=== PATIENT | female | born 1965 | race Caucasian/White ===

== ENCOUNTER 2016-08-21 20:00 | Emergency (ER) | payer OTHER ==
[~2016-08-21] VITALS: Ht 154.9 cm; Wt 88.0 kg
[~2016-08-21 20:00] MED LIST: ACET500C5 PO; ALBU8.5H3 INH; AZIT250T94 PO; GABA300C16 PO; HYDR-1049 PO; INSU300I SQ; LEVEM SC; METR500T PO
[2016-08-21 20:02] VITALS: Ht 154.9 cm; Wt 88.0 kg
[2016-08-21] MEDS ORDERED: SOD CHLORIDE 0.9% 1,000 ML IV STA (21:04)
[2016-08-21] MEDS ORDERED: morphine 4 MG/ML VIAL IV STA (21:04)
[2016-08-21] MEDS ORDERED: ONDANSETRON 4 MG INJ IV STA (21:04)
[2016-08-21 21:50] LABS: ADD SCAN DIFF NO
[2016-08-21 21:52] LABS: BASOPHIL # 0.1 10^3/ul (0.0-0.1); BASOPHILS % 0.3 % (0.0-2.0); EOSINOPHILS # 0.3 10^3/ul (0.0-0.5); EOSINOPHILS % 2.4 % (0.0-7.0); HEMATOCRIT 35.5 % (37.0-47.0); HEMOGLOBIN 10.9 g/dl (12.0-16.0); LYMPHOCYTES # 4.7 10^3/ul (0.8-2.9); LYMPHOCYTES % 32.4 % (15.0-51.0); MEAN CORPUSCULAR HEMOGLOBIN 24.3 pg (29.0-33.0); MEAN CORPUSCULAR HGB CONC 30.7 g/dl (32.0-37.0); MEAN CORPUSCULAR VOLUME 79.1 fl (82.0-101.0); MEAN PLATELET VOLUME 10.1 fl (7.4-10.4); MONOCYTE # 0.7 10^3/ul (0.3-0.9); MONOCYTES % 4.9 % (0.0-11.0); NEUTROPHIL # 8.6 10^3/ul (1.6-7.5); NEUTROPHILS % 59.7 % (39.0-77.0); PLATELET COUNT 346 10^3/UL (140-415); RED BLOOD COUNT 4.49 10^6/ul (4.20-5.40); RED CELL DISTRIBUTION WIDTH 16.4 % (11.5-14.5); WHITE BLOOD COUNT 14.4 10^3/ul (4.8-10.8)
[2016-08-21 22:07] LABS: ALBUMIN 3.6 g/dl (3.3-4.9)
[2016-08-21 22:08] LABS: POTASSIUM 4.4 mmol/L (3.5-5.1)
[2016-08-21 22:10] LABS: ALBUMIN/GLOBULIN RATIO 0.94; BILIRUBIN,INDIRECT 0.1 mg/dl (0-1.1); BILIRUBIN,TOTAL 0.1 mg/dl (0.2-1.3); CREATININE 0.84 mg/dl (0.44-1.00); TOTAL PROTEIN 7.4 g/dl (6.1-8.1)
[2016-08-21 22:21] LABS: ADD UMIC NO; URINE BILIRUBIN (Dip) NEGATIVE (NEGATIVE); URINE BLOOD (Dip) NEGATIVE (NEGATIVE); URINE COLOR YELLOW (YELLOW); URINE GLUCOSE (Dip) NEGATIVE (NEGATIVE); URINE KETONES (Dip) NEGATIVE (NEGATIVE); URINE LEUKOCYTE ESTERASE (Dip) NEGATIVE (NEGATIVE); URINE NITRITE (Dip) NEGATIVE (NEGATIVE); URINE TOTAL PROTEIN (Dip) NEGATIVE (NEGATIVE); URINE UROBILINOGEN (Dip) 0.2 E.U./dL (0.1-1.0)
[2016-08-21] MEDS ORDERED: DICY10CA60 PO (23:17)
--- NOTE | 2016-08-21 23:41 | ERD ---
ER Documentation Chief Complaint Date/Time DATE: 08/21/16 TIME: 23:38 Chief Complaint lower abd pain radiating to back x2 weeks HPI 51-year-old female with a past medical history of diabetes, endometriosis, hypertension presents the ED complaining of bilateral lower abdominal pain that started intermittently 2 weeks ago. Reports that it radiates to her back. Describes it as achy and rates it a 8 out of 10. States that she got a colonoscopy in March 2016 and she had colon polyps which was removed at that time. Denies any constipation, diarrhea, chest pain, shortness of breath, wheezing, fever, chills. Reports that she has had a previous , appendectomy, right breast lumpectomy. Denies any vaginal bleeding, vaginal discharge, dysuria, urgency, frequency, flank pain. ROS All systems reviewed and are negative except as per history of present illness. Medications Home Meds Active Scripts Dicyclomine Hcl* (Bentyl*) 10 Mg Capsule, 10 MG PO QID, #20 CAP Prov:VALERIE COOK PA-C 08/21/16 Acetaminophen* (Tylophen*) 500 Mg Capsule, 2 CAP PO Q8H Y for PAIN AND OR ELEVATED TEMP, #20 CAP Prov:FENG HINOJOSA 04/05/16 Azithromycin* (Zithromax*) 250 Mg Tablet, 250 MG PO .ThaddeusPACK DIRECTED, #6 TAB TAKE 500 MG (2 TABS) THE FIRST DAY THEN 250 MG (1 TAB) DAYS 2-5 Prov:FENG HINOJOSA 04/05/16 Metronidazole* (Flagyl*) 500 Mg Tablet, 500 MG PO TID for 7 Days, TAB Prov:MARLA PARISH DO 02/21/16 Hydrocodone/Ibuprofen (Vicoprofen 200-7.5 MG) 1 Each Tablet, 2 TAB PO Q6H Y for PAIN, #20 TAB Prov:MARLA PARISH DO 02/21/16 Reported Medications Gabapentin* (Gabapentin*) 300 Mg Capsule, 600 MG PO QPM, #180 CAP 02/21/16 Gabapentin* (Gabapentin*) 300 Mg Capsule, 300 MG PO QAM, #60 CAP 02/21/16 Albuterol Sulfate* (Proair HFA*) 8.5 Gm Hfa.aer.ad, 2 PUFF INH Q4H Y for WHEEZING AND SOB, #1 INHALER 02/21/16 Insulin Detemir (Levemir) 100 Unit/1 Ml Vial, 16 UNIT SC TID, VIAL 02/21/16 Insulin Glargine,Hum.rec.anlog (Modesto Muniz) 300 Unit/1 Ml Insuln.pen, 72 UNIT SQ QPM 02/21/16 Allergies Allergies: Coded Allergies: ciprofloxacin (Verified Allergy, Severe, rash, 02/21/16) PMhx/Soc History of Surgery: Yes (endometriosis, cesarian section, APPY) Anesthesia Reaction: No Hx Neurological Disorder: No Hx Respiratory Disorders: Yes (asthma) Hx Cardiac Disorders: Yes (htn, HIGH CHOL) Hx Psychiatric Problems: Yes (depression, anxiety) Hx Miscellaneous Medical Probl: Yes (osteoarthritis, rheumatoid arthritis, osteoporosis, dm, POLYS) Hx Alcohol Use: No Hx Substance Use: No Hx Tobacco Use: No Smoking Status: Never smoker Physical Exam Vitals Vital Signs Date Time Temp Pulse Resp B/P Pulse Ox O2 Delivery O2 Flow Rate FiO2 08/21/16 20:02 98.5 88 20 119/69 98 Physical Exam Const: Vym-kvf-wisovodwi, well-nourished. In no acute distress. Head: Atraumatic, normocephalic Eyes: Normal Conjunctiva without injection. No purulent discharge. ENT: Normal external ear, nose. Moist oropharynx without tonsillar exudates. Non -erythematous pharynx. Uvula midline. No drooling. No trismus. Neck: No cervical midline tenderness. Full range of motion. No meningismus. No cervical lymphadenopathy. No JVD. Resp: Clear to auscultation bilaterally. No wheezing, rhonchi, rales, or crackles. No accessory muscle use. No retractions. Cardio: Regular rate and rhythm. No murmurs, rubs or gallops. Abd: Soft, right and left lower quadrant tenderness to palpation, non distended. Normal bowel sounds. No palpable masses. No rebound tenderness. No guarding. Negative McBurney's point. Negative psoas sign. Negative obturator sign. Skin: No petechiae or rashes Back: No midline tenderness. No CVA tenderness. Ext: No cyanosis, or edema. Neur: Awake and alert. Normal gait. Normal coordination. Psych: Normal Mood and Affect Result Diagram: 08/21/16213108/21/162131 Results 24 hrs Laboratory Tests Test 08/21/16 21:30 08/21/16 21:32 Urine Color YELLOW Urine Clarity CLEAR Urine pH 6.0 Urine Specific [place] 1.015 Urine Ketones NEGATIVE Urine Nitrite NEGATIVE Urine Bilirubin NEGATIVE Urine Urobilinogen 0.2 E.U./dL Urine Leukocyte Esterase NEGATIVE Urine Hemoglobin NEGATIVE Urine Glucose NEGATIVE% Urine Total Protein NEGATIVE White Blood Count 14.410^3/ul Red Blood Count 4.4910^6/ul Hemoglobin 10.9g/dl Hematocrit 35.5% Mean Corpuscular Volume 79.1fl Mean Corpuscular Hemoglobin 24.3pg Mean Corpuscular Hemoglobin Concent 30.7g/dl Red Cell Distribution Width 16.4% Platelet Count 17159^3/UL Mean Platelet Volume 10.1fl Neutrophils % 59.7% Lymphocytes % 32.4% Monocytes % 4.9% Eosinophils % 2.4% Basophils % 0.3% Nucleated Red Blood Cells % 0.0/100WBC Neutrophils # 8.610^3/ul Lymphocytes # 4.710^3/ul Monocytes # 0.710^3/ul Eosinophils # 0.310^3/ul Basophils # 0.110^3/ul Nucleated Red Blood Cells # 0.010^3/ul Sodium Level 140mmol/L Potassium Level 4.4mmol/L Chloride Level 102mmol/L Carbon Dioxide Level 27mmol/L Anion Gap 15 Blood Urea Nitrogen 17mg/dl Creatinine 0.84mg/dl Glucose Level 153mg/dl Calcium Level 9.0mg/dl Total Bilirubin 0.1mg/dl Direct Bilirubin 0.00mg/dl Indirect Bilirubin 0.1mg/dl Aspartate Amino Transf (AST/SGOT) 33IU/L Alanine Aminotransferase (ALT/SGPT) 25IU/L Alkaline Phosphatase 157IU/L Total Protein 7.4g/dl Albumin 3.6g/dl Globulin 3.80g/dl Albumin/Globulin Ratio 0.94 Lipase 109U/L Current Medications Medications (Trade) Dose Ordered Sig/Abby Route PRN Reason Start Time Stop Time Status Last Admin Dose Admin Sodium Chloride (NS) 1,000 ml @ 1,000 mls/hr Q1H STAT IV 08/21/16 21:04 3/24/17 22:03 DC 08/21/16 21:32 Morphine Sulfate (morphine) 4 mg ONCE STAT IV 08/21/16 21:04 08/21/16 21:06 DC 08/21/16 21:30 Ondansetron HCl (Zofran Inj) 4 mg ONCE STAT IV 08/21/16 21:04 08/21/16 21:06 DC 08/21/16 21:30 Procedures/MDM This is a 51-year-old female with past medical history of diabetes, hypertension , status post appendectomy, and endometriosis, right breast lumpectomy , colon polyps presents the ED complaining of lower abdominal pain that started intermittently 2 weeks ago. Patient is afebrile and nontoxic-appearing. Patient has normal vital signs. Patient was further worked up with CBC, CMP, lipase, UA. Patient's pain and symptoms have improved after treatment with 4 mg IV morphine, 4 mg IV Zofran. CBC: No leukocytosis. No e/o of systemic infection. No e/o anemia. CMP: No e/o severe acidosis, alkalosis, renal failure, diabetic ketoacidosis, liver disease Lipase within normal limits. Urine: No leukocyte esterase, no nitrites, no hematuria. No leukocytosis noted. Patient no longer has tenderness palpation of the abdomen. There is low suspicion for acute abdomen at this time as patient has been seen here in the ED for the same pain previously and had a negative CAT scan at that time. A differential diagnosis considered includes but is not limited to gastritis, GERD, peptic ulcer disease, cholecystitis, choledocholithiasis, cholangitis, pancreatitis, appendicitis, bowel obstruction , ileus, volvulus, nephrolithiasis, pyelonephritis, hepatitis, perforated viscus , diverticulitis, abdominal hernia, acute abdomen, mesenteric ischemia or other emergent conditions. This case discussed with my supervising physician, Dr. Harp who agreed with the management and discharge plan. 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 Instructed patient to return to the ED sooner for any worsening symptoms. Patient's questions were answered. Patient understood and agreed with discharge plan. Patient discharged stable. Departure Diagnosis: Primary Impression: Abdominal pain Abdominal location: lower abdomen, unspecified Qualified Code: R10.30 - Lower abdominal pain Condition: Stable Patient Instructions: Abdominal Pain Referrals: [facility] YOU HAVE RECEIVED A MEDICAL SCREENING EXAM AND THE RESULTS INDICATE THAT YOU DO NOT HAVE A CONDITION THAT REQUIRES URGENT TREATMENT IN THE EMERGENCY DEPARTMENT. FURTHER EVALUATION AND TREATMENT OF YOUR CONDITION CAN WAIT UNTIL YOU ARE SEEN IN YOUR DOCTORS OFFICE WITHIN THE NEXT 1-2 DAYS. IT IS YOUR RESPONSIBILITY TO MAKE AN APPOINTMENT FOR FOLOW-UP CARE. IF YOU HAVE A PRIMARY DOCTOR --you should call your primary doctor and schedule an appointment IF YOU DO NOT HAVE A PRIMARY DOCTOR YOU CAN CALL OUR PHYSICIAN REFERRAL HOTLINE AT IF YOU CAN NOT AFFORD TO SEE A PHYSICIAN YOU CAN CHOSE FROM THE FOLLOWING [facility] [address] [facility] [address] [facility]. [facility] [address] [facility] [facility] [address] [facility] [facility] [address] [facility]. [facility] [address] [facility]. [facility] YOU HAVE RECEIVED A MEDICAL SCREENING EXAM AND THE RESULTS INDICATE THAT YOU DO NOT HAVE A CONDITION THAT REQUIRES URGENT TREATMENT IN THE EMERGENCY DEPARTMENT. FURTHER EVALUATION AND TREATMENT OF YOUR CONDITION CAN WAIT UNTIL YOU ARE SEEN IN YOUR DOCTORS OFFICE WITHIN THE NEXT 1-2 DAYS. IT IS YOUR RESPONSIBILITY TO MAKE AN APPOINTMENT FOR FOLOW-UP CARE. IF YOU HAVE A PRIMARY DOCTOR --you should call your primary doctor and schedule and appointment IF YOU DO NOT HAVE A PRIMARY DOCTOR YOU CAN CALL OUR PHYSICIAN REFERRAL HOTLINE AT . IF YOU CAN NOT AFFORD TO SEE A PHYSICIAN YOU CAN CHOSE FROM THE FOLLOWING [facility] INSTITUTIONS: [facility] [address] [place] [address] [facility] [address] [place] [address] [facility] + [facility] [address] [place] [address] [facility] U[facility]ENT C[facility]/SPECIALTIES Additional Instructions: Seguimiento con mcgregor mdico de mlaia en 2 barrera para un referido a un gastroenter logo Regrese a estas instalaciones si no se mejora dannielle esperbamos o dannielle le mackmos. VALERIE COOK PA-C Aug 21, 2016 23:41
[2016-08-21 23:45] VITALS: BP 110/62; PULSE 80; RESP 16
== END 2016-08-21 23:46 | disposition home or self-care (01) ==
LOC: FTE 20:00
DX: R10.32 Left lower quadrant pain (principal); R10.31 Right lower quadrant pain; I10 Essential (primary) hypertension; J45.909 Unspecified asthma, uncomplicated; E11.9 Type 2 diabetes mellitus without complications; Z79.4 Long term (current) use of insulin
CPT/HCPCS: 36415; 80053; 81003; 83690; 85025; 96374; 96375; J2270; J2405; J7030; Z7502

== ENCOUNTER 2016-10-11 22:07 | Emergency (ER) | payer OTHER ==
[~2016-10-11] VITALS: Ht 144.8 cm; Wt 91.0 kg
[~2016-10-11 22:07] MED LIST changes: +DICY10CA60 PO
[2016-10-11 22:37] VITALS: Ht 144.8 cm; Wt 91.0 kg
--- NOTE | 2016-10-11 22:44 | ERD ---
ER Documentation Chief Complaint Date/Time DATE: 10/11/16 TIME: 22:43 Chief Complaint suture removal right leg HPI This is a 51-year-old female who is here for suture removal of her right leg. Denies any fevers or chills. Denies any nausea vomiting. Denies any other current complaints. ROS All systems reviewed and are negative except as per history of present illness. Medications Home Meds Active Scripts Dicyclomine Hcl* (Bentyl*) 10 Mg Capsule, 10 MG PO QID, #20 CAP Prov:VALERIE COOK PA-C 08/21/16 Acetaminophen* (Tylophen*) 500 Mg Capsule, 2 CAP PO Q8H Y for PAIN AND OR ELEVATED TEMP, #20 CAP Prov:FENG HINOJOSA 04/05/16 Azithromycin* (Zithromax*) 250 Mg Tablet, 250 MG PO .ZPACK DIRECTED, #6 TAB TAKE 500 MG (2 TABS) THE FIRST DAY THEN 250 MG (1 TAB) DAYS 2-5 Prov:FENG HINOJOSA 04/05/16 Metronidazole* (Flagyl*) 500 Mg Tablet, 500 MG PO TID for 7 Days, TAB Prov:MARLA PARISH DO 02/21/16 Hydrocodone/Ibuprofen (Vicoprofen 200-7.5 MG) 1 Each Tablet, 2 TAB PO Q6H Y for PAIN, #20 TAB Prov:MARLA PARISH DO 02/21/16 Reported Medications Gabapentin* (Gabapentin*) 300 Mg Capsule, 600 MG PO QPM, #180 CAP 02/21/16 Gabapentin* (Gabapentin*) 300 Mg Capsule, 300 MG PO QAM, #60 CAP 02/21/16 Albuterol Sulfate* (Proair HFA*) 8.5 Gm Hfa.aer.ad, 2 PUFF INH Q4H Y for WHEEZING AND SOB, #1 INHALER 02/21/16 Insulin Detemir (Levemir) 100 Unit/1 Ml Vial, 16 UNIT SC TID, VIAL 02/21/16 Insulin Glargine,Hum.rec.anlog (Modesto Muniz) 300 Unit/1 Ml Insuln.pen, 72 UNIT SQ QPM 02/21/16 Allergies Allergies: Coded Allergies: ciprofloxacin (Verified Allergy, Severe, rash, 02/21/16) PMhx/Soc History of Surgery: Yes (endometriosis, cesarian section, APPY) Anesthesia Reaction: No Hx Neurological Disorder: No Hx Respiratory Disorders: Yes (asthma) Hx Cardiac Disorders: Yes (htn, HIGH CHOL) Hx Psychiatric Problems: Yes (depression, anxiety) Hx Miscellaneous Medical Probl: Yes (osteoarthritis, rheumatoid arthritis, osteoporosis, dm, POLYS) Hx Alcohol Use: No Hx Substance Use: No Hx Tobacco Use: No Physical Exam Vitals Vital Signs Date Time Temp Pulse Resp B/P Pulse Ox O2 Delivery O2 Flow Rate FiO2 10/11/16 22:37 98.7 91 20 120/65 98 Physical Exam Const: [] Head: Atraumatic Eyes: Normal Conjunctiva ENT: Normal External Ears, Nose and Mouth. Neck: Full range of motion..~ No meningismus. Resp: Clear to auscultation bilaterally Cardio: Regular rate and rhythm, no murmurs Abd: Soft, non tender, non distended. Normal bowel sounds Skin: Suture site is clean dry and intact with no evidence of infection Back: No midline or flank tenderness Ext: No cyanosis, or edema Neur: Awake and alert Psych: Normal Mood and Affect Procedures/MDM Medical decision-makin year female here for suture removal. At this point clinically stable for discharge home. Departure Diagnosis: Primary Impression: Encounter for removal of sutures Condition: Stable HEAVENLY OLIVER October 11, 2016 22:44
== END 2016-10-11 22:45 | disposition home or self-care (01) ==
LOC: E/R 22:07
DX: Z48.02 Encounter for removal of sutures (principal); J45.909 Unspecified asthma, uncomplicated; E11.9 Type 2 diabetes mellitus without complications; I10 Essential (primary) hypertension; Z79.4 Long term (current) use of insulin
CPT/HCPCS: 99281